=== PATIENT | male | born 1995 | race Caucasian/White ===

== ENCOUNTER 2019-09-19 17:03 | Emergency (ER) | payer BC, SELFPAY ==
[2019-09-19 17:09] VITALS: BMI 26.5
[2019-09-19 17:12] VITALS: BP 143/72; PULSE 90; RESP 16; TEMP 36.8; O2SAT 97
--- NOTE | 2019-09-19 17:23 | W.ED.EXTPRO ---
HPI - Extremity Problem General: Chief complaint: Extremity Injury, Upper Stated complaint: FINGER LAC Time Seen by Provider: 09/19/19 17:16 Source: patient Mode of arrival: ambulatory Limitations: no limitations History of Present Illness: HPI Narrative: Patient was working on his jet boat and caught his third distal finger, middle finger, against the fly wheel of the motor. Patient is pinched the tip of his finger partially avulsing it. No chronic medical problems are noted. Patient appears well. Review of Systems General: Reports: 10 or more systems reviewed and unremarkable except in HPI and below Skin/Breast: Reports: other (Crush injury middle finger left hand) PFS ED PFSH: Social History Smoking and tobacco status: never smoked Physical Exam Const: COMMON NORMALS: no acute distress and patient oriented x3 GENERAL APPEARANCE: cooperative HENMT: COMMON NORMALS: normocephalic and Normal external nose present HEAD & SCALP: normal to inspection and normocephalic NOSE: Normal external nose present Eye: GENERAL EYE: appearance normal, both eyes and all related structures Neck/C-Spine: COMMON NORMALS: full ROM Chest: COMMONS NORMALS: normal inspection of the chest Resp: COMMON NORMALS: normal respiratory effort EFFORT & INSPECTION: Yes able to speak in complete sentences Cardio: COMMON NORMALS: regular rate and regular rhythm RATE: regular rate RHYTHM: regular rhythm GI: COMMON NORMALS: non-tender : COMMON NORMALS: Yes no CVA tenderness BLADDER/KIDNEY EXAM: Yes no CVA tenderness Back/Pelvis: COMMON NORMALS: no CVA tenderness and thoracic and lumbar spine normal to inspection Extremity: COMMON NORMALS: normal to inspection Neuro: COMMON NORMALS: patient oriented x3 and moves all extremities Psych: COMMON NORMALS: mental status grossly normal and cooperative Skin: NARRATIVE SKIN EXAM: Partially avulsed distal tip of the left middle finger. Significant contused tissue. Procedures Laceration Laceration 1: Site: hand Side (If applicable): left Size (cm): 3 Description: irregular and other (invollves nailbed) Depth: involves muscle layer Local Anesthetic: lidocaine 1% (digital block) Amount of anesthesia used (mL): 10 Pre-repair: wound explored and irrigated extensively Skin layer closed with: nylon Size (cm): 4-0 Number of sutures: 11 Technique: simple, interrupted and horizontal mattress (1) Course Vital Signs: Vital signs: Vital Signs Temperature 98.2 F 09/19/19 17:12 Pulse Rate 90 09/19/19 17:12 Respiratory Rate 16 09/19/19 17:12 Blood Pressure 143/72 09/19/19 17:12 Pulse Oximetry 97 09/19/19 17:12 MDM - Extremity (Nontraumatic) MDM Narrative: Medical decision making narrative: Patient comes in for injury to the left middle finger. On exam patient has a partially avulsed distal finger with damage to the nail. Patient has good range of motion of the finger. Distal cap refill is intact. X-ray of the finger noted a comminuted tuft fracture. Differential diagnosis includes but not limited to foreign body, fracture, laceration, tendon injury. Wound was cleaned and no foreign body was noted. Wound was approximated with 10 simple interrupted sutures and 1 horizontal mattress suture cap refill was maintained. 3 simple interrupted sutures were placed into the nail plate to keep it intact. Patient was started on antibiotic given 1 g Rocephin in the emergency department. Patient will be continued on cephalexin. Reviewed post procedure care and instructions with need for follow-up. Patient reported understanding agreed to plan. Discharge Plan Discharge Patient Disposition: Home, Self-Care Clinical Impression: Crushed finger, distal Qualifiers: Encounter type: initial encounter Qualified Code(s): S67.10XA - Crushing injury of unspecified finger(s), initial encounter Fracture of finger of left hand Qualifiers: Encounter type: initial encounter Finger: middle finger Fracture type: open Phalanx: distal Fracture alignment: displaced Qualified Code(s): S62.633B - Displaced fracture of distal phalanx of left middle finger, initial encounter for open fracture Condition: Stable Prescriptions: New cephalexin 500 mg capsule 500 mg PO TID 10 Days Qty: 30 RF: 0 hydrocodone-acetaminophen 5-325 mg tablet 1 tab PO Q8H PRN (Reason: pain, severe) Qty: 6 RF: 0 Discharge Orders: Discharge Order (Routine); Ordered 09/19/19 Ordered By: Silvino Howell Referrals: [facility] [Other] Discharge Diet: Usual diet Discharge Activity: Increase activity as tolerated Patient Instructions: Finger Laceration (ED) Activity Restrictions/Additional Instructions: Home and rest. Keep wound clean and dry especially for the next 2 days. After that you can wash it gently with mild soap and water and then cover with clean dry dressing. Take antibiotics as directed. Sutures need to come out in approximately 10 days. Monitor for signs of infection such as increased redness, fever or severe pain and follow-up with ER as needed. Follow-up with primary care in 1 week. Coding Level of Care Code ED Supervisor [employer] [facility] Exam Comprehensive
--- NOTE | 2019-09-19 17:28 | XRR_ITS ---
PROCEDURE INFORMATION: Exam: XR Left Hand Exam date and time: 09/19/2019 5:29 PM Age: 24 years old Clinical indication: Injury or trauma; Injury history: Smashed in a boat motor; Initial encounter; Amputation, traumatic and blunt trauma (contusions or hematomas and crushing; Left middle finger; Additional info: Injury middle digit TECHNIQUE: Imaging protocol: XR Left hand. Views: 3 or more views. COMPARISON: No relevant prior studies available. FINDINGS: Bones/joints: Crush injury tuft terminal phalanx 3rd digit left hand. Complex comminuted avulsion fracture with numerous fragments and with fracture fragment displacement. Evidence of associated laceration. Potential open fracture. No visible intra-articular component. Soft tissues: Soft tissue swelling 3rd digit left hand. XR/XR hand LT min 3V* [id number] IMPRESSION: 1. Crush injury tuft terminal phalanx 3rd digit left hand with complex comminuted fracture, laceration, and soft tissue swelling. 2. Potential open fracture.
[2019-09-19] MEDS: cefTRIAXone 1,000 mg SDV 1000 MG IM (18:35)
[2019-09-19] MEDS: lidocaine 1% INJ 20 mL INJECTION (18:35)
[2019-09-19] MEDS: tetanus-dipt-pertussis 0.5 mL SDV IM (18:36)
[2019-09-19 18:59] VITALS: BP 142/89; PULSE 81; RESP 18; O2SAT 98
--- NOTE | 2019-09-22 14:27 | DCPLANNER ---
Addendum entered by Donna Streeter 09/22/19 16:23: Pat from the ortho clinic called case maker and stated that when clinic called patient to make a follow up appointment, patient stated that he was in [place], and did not want appointment at this time. Original Note: project manager industrial had message to schedule a follow up appointment for patient with ortho. project manager industrial called the ortho clinic, spoke with Pat, gave clinic patients information. project manager industrial was told that patients information would be printed and reviewed. Clinic will call case maker and patient with appointment information.
== END 2019-09-19 18:57 | disposition home or self-care (01) ==
LOC: ER 17:50
PROVIDERS: Emergency Provider Nurse Practitioner Family
DX: S62.633B Displaced fracture of distal phalanx of left middle finger, initial encounter for open fracture (principal); S67.193A Crushing injury of left middle finger, initial encounter; W31.89XA Contact with other specified machinery, initial encounter; Z23 Encounter for immunization
CPT/HCPCS: 11760; 12345; 13132; 73130; 90471; 90715; 96372; 99282; 99283; A6446; J0696; J2001

== ENCOUNTER → 2023-05-08 09:54 | Outpatient (BNVA) | payer BC, SELFPAY | PROVIDERS: PCP Registered Nurse; Visit Provider Registered Nurse | DX: J32.9 Chronic sinusitis, unspecified (principal) | CPT/HCPCS: 87400; 87426 ==